=== PATIENT | male | born 1975 | race African-American/Black ===

== ENCOUNTER 2017-08-10 10:56 | Emergency (ER) | payer BC, OTHER ==
[2017-08-10 11:14] VITALS: BP 125/69
[2017-08-10] MEDS: NALBUPHINE HCL 10 MG/1 ML IM ONE (11:15)
[2017-08-10] MEDS: KETOROLAC TROMETHAMINE 60 MG/2 ML VIAL IM ONE (11:15)
--- NOTE | 2017-08-10 12:06 | ED Physician Documentation ---
Upper Extremity Injury - HISTORIAN Historian: patient - HPI Stated Complaint: L shoulder/elbow pain Chief Complaint: Upper Extremity Problem Onset: other (since Tuesday ) Severity: severe Duration: worse Further Comments: yes (42 year old male patient presents with complaint of left elbow pain since Tuesday. Patient reports pain is progressively worse; cannot flex or extend left elbow due to pain. Denies injury, fall or trauma; denies history of gout. No previous symptoms. Denies heavy lifting.) - ROS CONST: no problems CVS/RESP: none NEURO: none MS/SKIN/LYMPH: none GI/: denies: nausea, vomiting - PAST HX Past History: none Allergies/Adverse Reactions: Allergies Allergy/AdvReac Type Severity Reaction Status Date / Time bees Allergy Severe Generalized Uncoded 08/10/17 11:13 Swelling Home Medications: Ambulatory Orders Medication Instructions Recorded Ketorolac Tromethamine [Toradol] 10 mg PO TID #15 tablet 08/10/17 - SOCIAL HX Smoking History: cigarettes - FAMILY HX Family History: denies: none - VITAL SIGNS Vital Signs: Vital Signs Temp Pulse Resp BP Pulse Ox 97.2 F L 92 H 17 125/69 99 08/10/17 12:20 08/10/17 12:20 08/10/17 12:20 08/10/17 12:20 08/10/17 12:20 - REVIEWED ASSESSMENTS Nursing Assessment Reviewed: Yes Vitals Reviewed: Yes ED Results Lab/Radiology - Lab Results Lab Results: Lab Results 08/10/17 11:20 Uric Acid 4.2 mg/dL mg/dL (3.5-8.5) - Radiology Radiology Impressions: Examination: Plain film left elbow History: Elbow pain x 6 days, cannot flex or extend, no known injury (Hx) Comparison exams: None provided Findings: 3 views of the left elbow demonstrate normal cortical margins. No fracture. No dislocation. Radial head is within normal limits. No joint effusion Impression: No acute osseous abnormality. Consider obtaining MRI elbow to evaluate soft tissue structures. Electronically signed on Aug 10, 2017 11:55:26 AM CDT by: Diaz Cervantes - Orders Orders: ED Orders Category Date Time Status Sling to Affected Extremity 1T Care 08/10/17 12:06 Active ELBOW 3 VIEWS [RAD] Stat Exams 08/10/17 Ordered URIC ACID DAILY Lab 08/10/17 11:20 Completed Ketorolac Tromethamine [Toradol] Med 08/10/17 11:13 Discontinued 60 mg IM NOW ONE Nalbuphine HCl [Nubain] Med 08/10/17 11:14 Discontinued 10 mg IM NOW ONE Upper Extremity Injury Physic - Physical Exam General Appearance: mild distress Hand: normal inspection, non-tender, no evidence of injury, normal ROM Wrist: normal inspection, non-tender, no evidence of injury, normal ROM Elbow/Forearm: limited ROM (left elbow - patient will not supinate; pronate; extend or flex; c/o pain; no warmth or erythema noted. ), pain (left elbow), soft tissue tenderness (left elbow -medial and lateral; ), swelling (scant) Neuro/Vascular/Tendon: no vascular compromise, motor nml, sensation nml, ROM nml Skin: warm,dry Resp/CVS: chest non-tender, breath sounds nml, heart sounds nml, no resp. distress, lungs clear, reg. rate & rhythm Abdomen: non-tender, pelvis stable Discharge Clincal Impression: Left elbow pain, Left elbow tendonitis Prescriptions: Ketorolac Tromethamine [Toradol] 10 mg PO TID #15 tablet Referrals: Jaclyn Szymanski MD [Primary Care Provider] - 2 Days Additional Instructions: Ice Rest Elevation If you are unable to bear weight and continuing to have significant pain on day 3-4; see your PCP for re-evaluation and additional xrays. You may use Tylenol every 4hour as needed for pain. Limit your dose to less than 4 G per day. Do not take ibuprofen, aleve, naproxen or any other NSAID while you are on toradol. You may want to try massage, over the counter lidocaine patches, biofreeze, hazel balderas or aspercream . Return to Er if you arm becomes warm, red, or has worsening pain. Condition: Stable Disposition: 01 HOME, SELF-CARE Decision to Admit: NO Decision Time: 12:16
--- NOTE | 2017-08-10 17:48 | Diagnostic Imaging Report ---
OTIS WHITEHEAD (MANAGER SAP) - ER~ [facility] [id number] [address] ~ ~ ~ ~ Report Submission Date: Aug 10, 2017 11:55:26 AM CDT Patient ~ Study Name: ALFREDO ARIAS ~ Date: Aug 10, 2017 11:28:14 AM CDT ~ Modality Type: DX Gender: M ~ Description: UPPER EXTREMITY : 77 ~ Institution: [facility] Physician: OTIS WHITEHEAD (MANAGER SAP) - ER ~ ~ ~ Examination: Plain film left elbow History: Elbow pain x 6 days, cannot flex or extend, no known injury (Hx) Comparison exams: None provided Findings: 3 views of the left elbow demonstrate normal cortical margins. No fracture.~ No dislocation.~ Radial head is within normal limits. No joint effusion Impression: No acute osseous abnormality. Consider obtaining MRI elbow to evaluate soft tissue structures. ~ Electronically signed on Aug 10, 2017 11:55:26 AM CDT by: Diaz JOSHI
--- NOTE | 2017-08-12 08:24 | Diagnostic Imaging Report ---
OTIS WHITEHEAD (MULTIGRAPHER) - ER [facility] [id number] [facility].[address] [address] Report Submission Date: Aug 10, 2017 11:55:26 AM CDT Patient Study Name: ALFREDO ARIAS Date: Aug 10, 2017 11:28:14 AM CDT Modality Type: DX Gender: M Description: UPPER EXTREMITY : 77 Institution: [facility] Physician: OTIS WHITEHEAD (MULTIGRAPHER) - ER Examination: Plain film left elbow History: Elbow pain x 6 days, cannot flex or extend, no known injury (Hx) Comparison exams: None provided Findings: 3 views of the left elbow demonstrate normal cortical margins. No fracture. No dislocation. Radial head is within normal limits. No joint effusion Impression: No acute osseous abnormality. Consider obtaining MRI elbow to evaluate soft tissue structures. Electronically signed on Aug 10, 2017 11:55:26 AM CDT by: Diaz JOSHI
== END 2017-08-10 12:20 | disposition home or self-care (01) ==
LOC: ED 10:56
DX: M25.522 Pain in left elbow (principal); M77.8 Other enthesopathies, not elsewhere classified
CPT/HCPCS: 73080; 84550; J1885; J2300; 96372; 99283